=== PATIENT | female | born 1970 | race Caucasian/White ===

== ENCOUNTER 2016-06-27 11:07 | Day surgery (SDC) | payer OTHER ==
[~2016-06-27] VITALS: Ht 162.6 cm; Wt 72.6 kg
[~2016-06-27 11:07] MED LIST: ALBUTEROL SULF8.5 GM IH; AUGMENTIN875 MG PO; BUPROPION HCL100 MG PO; CIPRO500 MG PO; CLONIDINE HCL0.1 MG PO; DAILY VITAMIN1 EAC8 PO; DOCUSATE SODIU100 MG PO; ENDOCET 5-3251 EACH PO; GEODON40 MG PO; IBUPROFEN800 MG PO; KEFLEX500 MG PO; LAMICTAL200 MG PO; LISINOPRIL20 MG PO; LOPRESSOR50 MG PO; METOPROLOL SUCC50 MG PO; MILK OF MAGNESI10 ML PO; MOTRIN600 MG PO; NAPROSYN500 MG PO; NEURONTIN800 MG PO; OMEPRAZOLE20 MG PO; OXYCODONE HCL5 MG PO; PERCOCET 5/31 TABLET PO; PERCOCET 7.51 TABLET PO; PRILOSEC OTC20 MG PO; PRILOSEC20 MG PO; SANTYL30 GM TP; SAPHRIS10 MG PO; SAPHRIS10 MG SL; SENNA8.6 MG PO; SEROQUEL400 MG PO; SINEQUAN50 MG PO; TOPAMAX25 MG PO; TOPROL XL50 MG PO; VALTREX1000 MG PO; VENTOLIN HFA18 GM IH; VYVANSE50 MG PO; WELLBUTRIN SR100 MG PO; WELLBUTRIN XL150 MG PO; ZESTORETIC 20-1 EAC1 PO
[2016-06-27] MEDS ORDERED: TOPROL XL25 MG PO (12:03)
[2016-06-27 12:22] VITALS: BP 124/90
[2016-06-27 13:54] LABS: METH RESISTANT S AUREUS PCR NEGATIVE (NEGATIVE)
[2016-06-27 13:55] LABS: PROBE CHECK PASS; SPECIMEN PROCESSING CONTROL PASS
[2016-06-27] MEDS ORDERED: ENDOCET 5-3251 EACH PO (15:47)
[2016-06-27] MEDS ORDERED: IBUPROFEN800 MG PO (15:47)
[2016-06-27 18:10] VITALS: BP 123/59
[2016-06-27 19:17] VITALS: BP 123/60
[2016-06-27 20:13] VITALS: BP 125/68
[2016-06-30 12:51] LABS: INTERNAL CONTROL VALID? YES
== END 2016-06-27 20:33 | disposition home or self-care (01) ==
LOC: SDC 11:07
PROVIDERS: Obstetrics & Gynecology
DX: R10.2 Pelvic and perineal pain (principal); N94.6 Dysmenorrhea, unspecified; I10 Essential (primary) hypertension; J45.909 Unspecified asthma, uncomplicated; G89.29 Other chronic pain; M79.1 Myalgia
CPT/HCPCS: 84703; 87641; 88307; J0330; J0690; J1100; J1170; J2250; J2405; J2710; J2765; J3010

== ENCOUNTER 2017-07-05 13:23 | Emergency (ER) | payer OTHER ==
[~2017-07-05] VITALS: Ht 162.6 cm; Wt 76.5 kg
[~2017-07-05 13:23] MED LIST changes: +TOPROL XL25 MG PO
[2017-07-05 13:51] LABS: HEMATOCRIT 44.1 % (36.0-46.0); HEMOGLOBIN 15.1 G/DL (11.9-15.5); MCH 27.4 PG (29.0-34.0); MCHC 34.2 G/DL (30.0-36.0); PLATELET COUNT 321 K/uL (156-360); RBC DIS.WIDTH-CV 13.3 % (11.8-14.6); RBC DIS.WIDTH-SD 38.9 % (39-53); RED BLOOD COUNT 5.51 M/uL (3.80-5.20); WHITE BLOOD COUNT 9.5 K/uL (4.1-10.2)
[2017-07-05 14:02] LABS: ALBUMIN 4.5 g/dL (3.2-4.8); CHLORIDE 97 mEq/L (99-109); POTASSIUM 3.6 mEq/L (3.7-5.4); SODIUM 135 mEq/L (136-147)
[2017-07-05 14:04] LABS: GLUCOSE 105 mg/dL (70-99)
[2017-07-05 14:06] LABS: TOTAL BILIRUBIN 0.6 mg/dL (0.0-1.0)
[2017-07-05 14:08] LABS: ALKALINE PHOSPHATASE 64 IU/L (3-129); CREATININE 1.3 mg/dL (0.6-1.3); GFR ESTIMATE (CALCULATED) 47 mL/min/
[2017-07-05 14:09] LABS: UREA NITROGEN (BUN) 29 mg/dL (9-23)
[2017-07-05 14:10] LABS: AST (GOT) 17 IU/L (2-34)
[2017-07-05 14:11] LABS: APPEARANCE SL.HAZY ((CLEAR)); BILIRUBIN NEGATIVE; BLOOD NEGATIVE; COLOR YELLOW ((YELLOW)); GLUCOSE (STRIP) NEGATIVE; KETONES NEGATIVE; LEUKOCYTES NEGATIVE; NITRITE NEGATIVE; PROTEIN (STRIP) NEGATIVE; SPECIFIC GRAVITY 1.021 (1.000-1.030); UROBILINOGEN 0.2 MG/DL (0.2-1.0)
[2017-07-05 14:11] LABS: ALT (GPT) 18 IU/L (3-49)
[2017-07-05 14:17] LABS: QUANTITATIVE HCG < 4.0 MIU/ML
[2017-07-05 14:28] LABS: BACTERIA RARE /HPF; EPITHELIAL CELLS 3+ /HPF; MUCUS TRACE /LPF; RED BLOOD CELLS 0-5 /HPF (0-5); UCUL ADDED? NO; WHITE BLOOD CELLS 0-5 /HPF (0-5)
[2017-07-05 15:12] LABS: LIPASE 21 U/L (1.0-51.0)
[2017-07-05 15:36] LABS: AMPHETAMINE PRESUMPTIVE POSITIVE (500 ng/mL); BARBITURATES NEGATIVE (200 ng/mL); BENZODIAZEPINES NEGATIVE (150 ng/mL); BUPRENORPHINE NEGATIVE (10 ng/mL); COCAINE NEGATIVE (150 ng/mL); METHADONE NEGATIVE (200 ng/mL); METHAMPHETAMINE NEGATIVE (500 ng/mL); OPIATES (MORPHINE) NEGATIVE (100 ng/mL); OXYCODONE NEGATIVE (100 ng/mL); PHENCYCLIDINE NEGATIVE (25 ng/mL); PROPOXYPHENE NEGATIVE (300 ng/mL); THC CANNABINOIDS NEGATIVE (50 ng/mL); TRICYCLIC ANTIDEPRESSANTS NEGATIVE (300 ng/mL)
[2017-07-05 17:23] VITALS: BP 108/62
== END 2017-07-05 17:23 | disposition home or self-care (01) ==
LOC: EME 13:23
DX: R10.33 Periumbilical pain (principal); R11.2 Nausea with vomiting, unspecified; R56.9 Unspecified convulsions; F17.200 Nicotine dependence, unspecified, uncomplicated; Z88.5 Allergy status to narcotic agent; Z88.2 Allergy status to sulfonamides
CPT/HCPCS: 74177; 80053; 81003; 83690; 84702; 84999; 85027; 99281; 99285; J0500; J2765; J7030

== ENCOUNTER 2017-10-28 21:04 | Emergency (ER) | payer OTHER ==
[~2017-10-28] VITALS: Ht 162.6 cm; Wt 79.5 kg
[2017-10-28 21:56] LABS: HEMATOCRIT 45.9 % (36.0-46.0); MCH 27.5 PG (29.0-34.0); MCHC 35.1 G/DL (30.0-36.0); MCV 78.3 FL (83-99); RBC DIS.WIDTH-CV 13.2 % (11.8-14.6); RBC DIS.WIDTH-SD 37.2 % (39-53); RED BLOOD COUNT 5.86 M/uL (3.80-5.20); WHITE BLOOD COUNT 13.6 K/uL (4.1-10.2)
[2017-10-28 21:58] LABS: HEMOGLOBIN 16.1 G/DL (11.9-15.5); PLATELET COUNT 371 K/uL (156-360)
[2017-10-28 22:07] LABS: CHLORIDE 99 mEq/L (99-109); POTASSIUM 3.2 mEq/L (3.7-5.4); SODIUM 138 mEq/L (136-147)
[2017-10-28 22:08] LABS: GLUCOSE 120 mg/dL (70-99)
[2017-10-28 22:12] LABS: CREATININE 1.5 mg/dL (0.6-1.3); GFR ESTIMATE (CALCULATED) 40 mL/min/
[2017-10-28 22:13] LABS: UREA NITROGEN (BUN) 19 mg/dL (9-23)
[2017-10-28 23:29] LABS: TROP-I INTERPRETATION NEGATIVE; TROPONIN-I < 0.01 ng/mL (0.0-0.30)
[2017-10-29 00:47] LABS: APPEARANCE TURBID ((CLEAR)); BILIRUBIN NEGATIVE; BLOOD NEGATIVE; COLOR AMBER ((YELLOW)); GLUCOSE (STRIP) NEGATIVE; KETONES 20; LEUKOCYTES TRACE; NITRITE NEGATIVE; PROTEIN (STRIP) 30; SPECIFIC GRAVITY 1.025 (1.000-1.030)
[2017-10-29 01:00] LABS: AMPHETAMINE PRESUMPTIVE POSITIVE (500 ng/mL); BARBITURATES NEGATIVE (200 ng/mL); BENZODIAZEPINES PRESUMPTIVE POSITIVE (150 ng/mL); BUPRENORPHINE NEGATIVE (10 ng/mL); COCAINE PRESUMPTIVE POSITIVE (150 ng/mL); METHADONE NEGATIVE (200 ng/mL); METHAMPHETAMINE NEGATIVE (500 ng/mL); OPIATES (MORPHINE) NEGATIVE (100 ng/mL); OXYCODONE NEGATIVE (100 ng/mL); PHENCYCLIDINE NEGATIVE (25 ng/mL); PROPOXYPHENE NEGATIVE (300 ng/mL); THC CANNABINOIDS NEGATIVE (50 ng/mL); TRICYCLIC ANTIDEPRESSANTS NEGATIVE (300 ng/mL)
[2017-10-29 01:04] LABS: EPITHELIAL CELLS 4+ /HPF; MUCUS NONE SEEN /LPF; RED BLOOD CELLS 0-5 /HPF (0-5); WHITE BLOOD CELLS 0-5 /HPF (0-5)
[2017-10-29 01:05] LABS: BACTERIA 2+ /HPF; UCUL ADDED? YES
[2017-10-29 03:03] LABS: TROP-I INTERPRETATION NEGATIVE; TROPONIN-I < 0.01 ng/mL (0.0-0.30)
[2017-10-29] MEDS ORDERED: ATARAX,VISTARIL25 MG PO (03:12)
[2017-10-29 04:16] VITALS: BP 131/79
[2017-10-29 06:21] LABS: BENZODIAZEPINES, URINE SCREEN Negative (200 ng/mL)
== END 2017-10-29 04:18 | disposition home or self-care (01) ==
LOC: EME 21:04
PROVIDERS: Physician Assistant
DX: R06.00 Dyspnea, unspecified (principal); F41.9 Anxiety disorder, unspecified; E86.0 Dehydration; F14.10 Cocaine abuse, uncomplicated; F15.10 Other stimulant abuse, uncomplicated; F13.10 Sedative, hypnotic or anxiolytic abuse, uncomplicated; F17.200 Nicotine dependence, unspecified, uncomplicated; J45.909 Unspecified asthma, uncomplicated; Z88.5 Allergy status to narcotic agent; Z88.2 Allergy status to sulfonamides
CPT/HCPCS: 71045; 71046; 71275; 80048; 81003; 84484; 84999; 85027; 85379; 87086; 93005; 94640; 99281; 99285; J7030; Q0177